=== PATIENT | male | born 1990 | race Caucasian/White ===

== ENCOUNTER 2017-10-11 01:53 | Emergency (ER) | payer BC, OTHER ==
[~2017-10-11 01:53] MED LIST: LOR10 PO; LORA-802 PO; OMEP-218 PO; PRE20 PO; PROAIRPT IH
[2017-10-11 01:55] VITALS: BP 189/100
--- NOTE | 2017-10-11 02:11 | ER Report ---
History and Physical Time Seen By MD: 02:10 Hx. of Stated Complaint: PT UNDER ARREST. NEEDS SNF CLEARANCE. HPI/ROS CHIEF COMPLAINT: Intoxication HISTORY OF PRESENT ILLNESS: 27-year-old male who was brought in by police for medical clearance after being arrested for intoxication tonight. Patient denies any pain, trauma and has no complaints. Allergies: Coded Allergies: No Known Drug Allergies (Verified , 10/11/17) Home Meds Reported Medications Albuterol Sulfate (Proair Hfa) 8.5 Gm Aer.w.adap, 8.5 GM IH, 0 Refills 02/13/10 Discontinued Reported Medications Omeprazole Magnesium (Prilosec Otc) 20 Mg Tablet.dr, 20 MG PO BID, #60 0 Refills 02/13/10 Loratadine (Claritin) 10 Mg Tab, 10 MG PO QDAY Y, #30 0 Refills 10 Prednisone (Prednisone) 20 Mg Tab, 20 MG PO QDAY, 0 Refills 02/13/10 Omeprazole Magnesium (Prilosec Otc) 20 Mg Tablet.dr, 20 MG PO QDAY, 0 Refills 02/13/10 Loratadine (Claritin) 10 Mg Tablet, 10 MG PO, 0 Refills 02/13/10 Past Medical/Surgical History Asthma Hx Substance Use Disorder: No Hx Alcohol Use: Yes (OCC) Constitutional Vital Sign - Last 24 Hours 10/11/17 01:55 Temp 97.8 Pulse 100 Resp 14 B/P (MAP) 189/100 Pulse Ox 93 O2 Delivery Room Air Physical Exam General appearance: Alert no distress. HEENT: Atraumatic Respiratory: Chest is non tender, lungs are clear to auscultation. Neuro: No motor or sensory deficits, speech is slightly slurred. DIFFERENTIAL DIAGNOSIS: After history and physical exam differential diagnosis was considered for altered mental status including but not limited to hypoglycemia, infectious process, electrolyte abnormality, head injury and intoxicants. Medical Decision Making ED Course/Re-evaluation ED Course Exam is normal except for signs of moderate alcohol intoxication. Patient admits to drinking too much alcohol tonight. Medically cleared and released into police custody. Decision to Disposition Date: October 11, 2017 Decision to Disposition Time: 02:10 Depart Departure Latest Vital Signs Vital Signs Date Time Temp Pulse Resp B/P (MAP) Pulse Ox O2 Delivery O2 Flow Rate FiO2 5/5/18 01:55 97.8 100 14 189/100 93 Room Air Impression: Primary Impression: Alcohol intoxication Condition: Condition Unchanged Disposition: [facility] TO SNF/CORRECTIONAL F Departure Forms: Medications Reconciliation, Patient Portal Information, ER Transition Record Patient Instructions: Alcohol Intoxication (ED) Problem Qualifiers Primary Impression: Alcohol intoxication Complication of substance-induced condition: uncomplicated Qualified Codes: F10.920 - Alcohol use, unspecified with intoxication, uncomplicated MAGGIE BARON MD October 11, 2017 02:11
== END 2017-10-11 02:15 ==
LOC: ER 01:59
DX: F10.920 Alcohol use, unspecified with intoxication, uncomplicated (principal)
CPT/HCPCS: 99281